=== PATIENT | male | born 1980 | race Caucasian/White ===

== ENCOUNTER 2023-12-19 18:09 | Emergency (ER) | payer MEDICAID ==
[~2023-12-19] VITALS: Ht 170.2 cm; Wt 108.9 kg
[2023-12-19 18:21] VITALS: PULSE 123; RESP 19; TEMP 97.1; O2SAT 95
[2023-12-19 19:05] VITALS: PULSE 123; RESP 19; TEMP 97.1; O2SAT 95
== END 2023-12-19 19:05 ==
LOC: SED 18:09
DX: S83.8X2A Sprain of other specified parts of left knee, initial encounter (principal); H10.9 Unspecified conjunctivitis; Y08.89XA Assault by other specified means, initial encounter; Y93.89 Activity, other specified; Y92.89 Other specified places as the place of occurrence of the external cause; Y99.8 Other external cause status
CPT/HCPCS: 73564; 99283